=== PATIENT | male | born 1970 | race Caucasian/White ===

== ENCOUNTER 2018-11-10 19:20 | Emergency (ER) | payer MEDICAID, OTHER ==
[~2018-11-10] VITALS: Ht 170.2 cm; Wt 81.6 kg
--- NOTE | 2018-11-10 19:55 | NUR ---
PT LASHA C/O +ELLE BASILIO, WAS D/C FROM [facility] TODAY, WAS NOT READY. REQUEST TO GO TO [facility]. PT ON MONITOR IN BED 11. WILL CONTINUE TO MONITOR.
--- NOTE | 2018-11-10 20:24 | NUR ---
URINE SENT TO LAB
[2018-11-10 20:31] LABS: BASOPHILS % (AUTO) 0.6 % (0.0-2.0); EOSINOPHILS % (AUTO) 1.6 % (0.0-6.0); HEMATOCRIT 39 % (39-51); LYMPHOCYTES # (AUTO) 1.6 /CMM (0.8-4.8); LYMPHOCYTES % (AUTO) 33.4 % (20.0-44.0); MEAN CORPUSCULAR HGB CONC 34 g/dl (31.0-36.0); MEAN CORPUSCULAR VOLUME 91 fL (80-96); MONOCYTES # (AUTO) 0.7 /CMM (0.1-1.30); MONOCYTES % (AUTO) 14.4 % (2.0-12.0); NEUTROPHILS # (AUTO) 2.4 /CMM (1.8-8.9); PLATELET COUNT (AUTO) 235 /CMM (150-450); RED BLOOD CELL COUNT(AUTO) 4.26 MIL/uL (4.5-6.0); WHITE BLOOD COUNT (AUTO) 4.8 K/uL (4.3-11.0)
[2018-11-10 20:33] LABS: APPEARANCE,URINE Clear (CLEAR); BILIRUBIN,URINE Negative (NEGATIVE); BLOOD, URINE Negative Ery/uL (NEGATIVE); COLOR,URINE Yellow (YELLOW); KETONES,URINE Negative (NEGATIVE); LEUKOCYTE ESTERASE ,URINE Negative (NEGATIVE); NITRITE, URINE Negative (NEGATIVE); PROTEIN,URINE Negative (NEGATIVE); UGLUCOSE >=1000 mg/dL (NEGATIVE); UROBILINOGEN,URINE 0.2 EU/dL (0.2)
[2018-11-10 20:39] LABS: BACTERIA,URINE None seen /HPF (None Seen); RBC,URINE 0-2 /HPF (0-2); SQUAMOUS EPITHELIAL CELL,UR Few /HPF (None Seen); WBC,URINE 0-2 /HPF (0-3)
[2018-11-10 20:40] LABS: CALCIUM, SERUM 8.6 mg/dL (8.5-10.1); CARBON DIOXIDE 24 mmol/L (21-32); CHLORIDE 98 mmol/L (98-107); GLUCOSE 297 mg/dL (74-106); POTASSIUM 3.9 mmol/L (3.5-5.1); SODIUM SERUM 131 mmol/L (136-145); UREA NITROGEN, BLOOD 17 mg/dL (7-18)
[2018-11-10 20:48] LABS: ALANINE AMINOTRANSFERASE 33 U/L (12-78); ALBUMIN 3.6 g/dL (3.4-5.0); ALCOHOL, BLOOD 8 mg/dL (0-0); ALKALINE PHOSPHATASE 105 U/L (46-116); ASPARTATE AMINOTRANSFERASE 18 U/L (15-37); BILIRUBIN,DIRECT 0.1 mg/dL (0.0-0.2); BILIRUBIN,TOTAL 0.3 mg/dL (0.2-1.0); SALICYLATE 2.8 mg/dL (2.8-20.0); TOTAL PROTEIN, SERUM 7.1 g/dL (6.4-8.2)
[2018-11-10 20:49] LABS: ACETAMINOPHEN < 2 ug/ml (10-30)
[2018-11-10] MEDS ORDERED: INSULIN REGULAR, HUMAN 100 UNIT/ML 10 ML VIAL SQ ONE (21:30)
[2018-11-10] MEDS ORDERED: INSULIN REGULAR, HUMAN 100 UNIT/ML 10 ML VIAL ONE (22:14)
--- NOTE | 2018-11-10 23:28 | NUR ---
HANSEL BANDA AT BEDSIDE FOR EVAL
--- NOTE | 2018-11-11 01:26 | NUR ---
LILIANE, FROM [facility], REQUESTING PT INFO TO BE FAXED
--- NOTE | 2018-11-11 03:28 | NUR ---
PT ACCEPTED TO [facility]. ACCEPTED BY DR VELIZ. # FOR REPORT [phone]
--- NOTE | 2018-11-11 03:33 | NUR ---
CALLED [facility] FOR S TRANSPORT TO [facility]. ETA: [phone] RUN #: [id number]
--- NOTE | 2018-11-11 04:32 | NUR ---
REPORT GIVEN TO KAYLEEN SHINE AT [facility]
[2018-11-11 04:36] VITALS: BP 97/73
== END 2018-11-11 06:05 | disposition home or self-care (01) ==
LOC: ER 19:23
DX: F31.9 Bipolar disorder, unspecified (principal); I10 Essential (primary) hypertension; E11.9 Type 2 diabetes mellitus without complications; F20.9 Schizophrenia, unspecified
CPT/HCPCS: 36415; 80048; 80076; 80305; 80307; 80329; 81001; 82962 ×2; 85025; 96372; 99284; A4606; G0480; J1815; 81000-TC

== ENCOUNTER 2019-02-01 19:30 | Emergency (ER) | payer OTHER ==
[~2019-02-01] VITALS: Ht 170.2 cm; Wt 81.6 kg
--- NOTE | 2019-02-01 20:09 | NUR ---
PT PRESENTED TO THE ER WITH A C/O SI WITH A PLAN TO RUN INTO TRAFFIC. PT GAVE A URINE SAMPLE UPON ARRIVAL TO ER. PT AMBULATED TO ER18/1 WITH A STEADY GAIT. PT IS AWAITING EVAL BY . PT REC'D A SANDWICH AND JUICE X2.
[2019-02-01 20:22] LABS: APPEARANCE,URINE Clear (CLEAR); BILIRUBIN,URINE Negative (NEGATIVE); BLOOD, URINE Negative Ery/uL (NEGATIVE); COLOR,URINE Yellow (YELLOW); KETONES,URINE Negative (NEGATIVE); LEUKOCYTE ESTERASE ,URINE Negative (NEGATIVE); NITRITE, URINE Negative (NEGATIVE); PROTEIN,URINE Negative (NEGATIVE); UGLUCOSE 500 MG/DL mg/dL (NEGATIVE); UROBILINOGEN,URINE 0.2 EU/dL (0.2)
[2019-02-01 20:34] LABS: BASOPHILS % (AUTO) 0.3 % (0.0-2.0); EOSINOPHILS % (AUTO) 0.7 % (0.0-6.0); HEMATOCRIT 36 % (39-51); HEMOGLOBIN 12.2 g/dL (13.5-17.5); LYMPHOCYTES # (AUTO) 1.6 /CMM (0.8-4.8); LYMPHOCYTES % (AUTO) 25.4 % (20.0-44.0); MEAN CORPUSCULAR HGB CONC 34 g/dl (31.0-36.0); MEAN CORPUSCULAR VOLUME 92 fL (80-96); MONOCYTES # (AUTO) 0.5 /CMM (0.1-1.30); MONOCYTES % (AUTO) 7.5 % (2.0-12.0); NEUTROPHILS # (AUTO) 4.1 /CMM (1.8-8.9); NEUTROPHILS % (AUTO) 66.1 % (43.0-81.0); PLATELET COUNT (AUTO) 192 /CMM (150-450); RED BLOOD CELL COUNT(AUTO) 3.92 MIL/uL (4.5-6.0); WHITE BLOOD COUNT (AUTO) 6.2 K/uL (4.3-11.0)
[2019-02-01 20:55] LABS: ALBUMIN 3.2 g/dL (3.4-5.0); BILIRUBIN,DIRECT 0.1 mg/dL (0.0-0.2); BILIRUBIN,TOTAL 0.4 mg/dL (0.2-1.0); CALCIUM, SERUM 8.8 mg/dL (8.5-10.1); CREATININE 0.8 mg/dL (0.6-1.3); POTASSIUM 4.1 mmol/L (3.5-5.1); TOTAL PROTEIN, SERUM 6.7 g/dL (6.4-8.2)
--- NOTE | 2019-02-01 21:12 | NUR ---
PT WAS MOVED TO ER 10. PT AMBULATED WITH A STEADY GAIT.
[2019-02-01] MEDS ORDERED: INSULIN REGULAR, HUMAN 100 UNIT/ML 10 ML VIAL ONE (21:20)
--- NOTE | 2019-02-01 21:26 | NUR ---
PT REC'D MEDICATION ORDERED. PT APPEARS TO BE RESTING COMFORTABLY WITH NO S/S OF PAIN OR DISTRESS.
[2019-02-01] MEDS ORDERED: INSULIN REGULAR, HUMAN 100 UNIT/ML 10 ML VIAL SQ ONE (21:30)
[2019-02-01] MEDS ORDERED: IV NS 0.9% 1,000 ML BAG IV ONE (21:30)
--- NOTE | 2019-02-01 22:56 | NUR ---
PT APPEARS TO BE RESTING COMFORTABLY WITH NO S/S OF PAIN OR DISTRESS. WILL CONTINUE TO MONITOR THE PT.
--- NOTE | 2019-02-01 23:15 | NUR ---
PT WAS STANDING AT THE BEDSIDE. PT STATED THAT HE NEEDED TO USE THE BATHROOM. PT WAS DISCONNECTED FROM THE MONITOR AND CONTINUOUS PULSE OX.
--- NOTE | 2019-02-01 23:30 | NUR ---
PT RETURNED FROM THE BATHROOM AND WAS RECONNECTED TO THE MONITOR AND COTNINUOUS PULSE OX.
--- NOTE | 2019-02-02 00:28 | NUR ---
CALLED MELISSA GILL LCSW RE: EVALUATING THE PT. ART TO COME IN.
--- NOTE | 2019-02-02 00:35 | NUR ---
PT REC'D INSULIN ORDERED.
[2019-02-02] MEDS ORDERED: INSULIN REGULAR, HUMAN 100 UNIT/ML 10 ML VIAL SQ ONE ×4 (01:00→11:00)
--- NOTE | 2019-02-02 01:05 | NUR ---
MELISSA GILL LCSW IS AT THE BEDSIDE SPEAKING TO THE PT.
[2019-02-02] MEDS ORDERED: INSULIN GLARGINE, 100 UNIT/ML CARTRIDGE SQ SCH (01:30)
--- NOTE | 2019-02-02 01:30 | NUR ---
PT'S BLOOD SUGAR NEEDS TO BE BELOW 200 FOR TRANSFER TO PSYCHE FACILITY.
[2019-02-02] MEDS ORDERED: GLYBERIDE PO (01:49)
[2019-02-02] MEDS ORDERED: INSU100V7 SQ (01:49)
[2019-02-02] MEDS ORDERED: METF-442 PO (01:49)
[2019-02-02] MEDS ORDERED: INSU100V28 SQ (01:49)
--- NOTE | 2019-02-02 03:03 | NUR ---
REPORT GIVEN TO KAYLEEN KHAN AND K[facility]LE[facility] ALEXANDER FOR [facility].
[2019-02-02] MEDS ORDERED: IV NS 0.9% 1,000 ML BAG IV ONE (04:00)
--- NOTE | 2019-02-02 04:30 | NUR ---
FOOD AND DRINKS PROVIDED.
--- NOTE | 2019-02-02 06:55 | NUR ---
CALLED [facility], AWAITING BED AVAILABILITY IN [facility].
--- NOTE | 2019-02-02 07:21 | NUR ---
REPORT GIVEN TO KAYLEEN TAO FOR [facility].
--- NOTE | 2019-02-02 08:12 | NUR ---
FAXED LATEST BLOOD GLUCOSE TEST 182MG/DL TO [id number] [facility]
[2019-02-02] MEDS ORDERED: INSULIN REGULAR, HUMAN 100 UNIT/ML 10 ML VIAL ONE (09:48)
[2019-02-02 10:38] VITALS: BP 142/90
--- NOTE | 2019-02-02 11:00 | NUR ---
REPORT GIVEN TO VALERIE BEYER OF [facility]
--- NOTE | 2019-02-02 11:23 | NUR ---
IV removed. Catheter intact and site benign. Pressure and 4x4 applied to site. No bleeding noted. Patient picked up by [facility] in stable condition, ging to Sushma Maxwell. Written and verbal after care instructions given. Patient verbalizes understanding of instruction.
== END 2019-02-02 11:30 ==
LOC: ER 19:33
DX: R45.851 Suicidal ideations (principal); E11.65 Type 2 diabetes mellitus with hyperglycemia; I10 Essential (primary) hypertension; F17.200 Nicotine dependence, unspecified, uncomplicated; Z79.4 Long term (current) use of insulin; Z79.84 Long term (current) use of oral hypoglycemic drugs
CPT/HCPCS: 36415; 80048; 80076; 80305; 80307; 80329; 81001; 82962 ×10; 85025; 96360; 96361; 96372 ×2; 99285; G0480; J1815 ×2; J7030 ×2; 81000-TC

== ENCOUNTER 2019-08-12 21:18 | Emergency (ER) | payer OTHER ==
[~2019-08-12] VITALS: Ht 170.2 cm; Wt 77.1 kg
[~2019-08-12 21:18] MED LIST: GLYBERIDE PO; INSU100V28 SQ; INSU100V7 SQ; METF-442 PO
--- NOTE | 2019-08-12 21:21 | NUR ---
PT C/O SI WITH PLAN TO RUN INTO TRAFFIC, HEARING VOICES TELLING ME TO RUN INTO TRAFFIC. ADMITS TO E[facility]H TODAY. PT AOX4. COOPERATIVE. NAD NOTED. RESP EVEN AND UNLABORED. PT PROVIDED URINE. PT IN HOSPITAL GOWN WITH BELONGINGS IN LABELED BAGS AWAY FROM PATIENT STORED IN APPRORIATE AREA. PT ON MONITOR IN BED 10. WILL CONTINUE TO MONITOR.
--- NOTE | 2019-08-12 21:22 | NUR ---
URINE SAMPLE GIVEN TO PHLEB
[2019-08-12 21:42] LABS: APPEARANCE,URINE Clear (CLEAR); BILIRUBIN,URINE Negative (NEGATIVE); BLOOD, URINE Negative Ery/uL (NEGATIVE); COLOR,URINE Yellow (YELLOW); KETONES,URINE Trace (NEGATIVE); LEUKOCYTE ESTERASE ,URINE Negative (NEGATIVE); NITRITE, URINE Negative (NEGATIVE); PROTEIN,URINE Negative (NEGATIVE); UGLUCOSE Negative (NEGATIVE); UROBILINOGEN,URINE 0.2 EU/dL (0.2)
--- NOTE | 2019-08-12 21:42 | NUR ---
PHLEB AT BEDSIDE FOR BLOOD DRAW
[2019-08-12 21:50] LABS: BASOPHILS % (AUTO) 0.7 % (0.0-2.0); EOSINOPHILS % (AUTO) 2.3 % (0.0-6.0); HEMATOCRIT 43 % (39-51); HEMOGLOBIN 14.4 g/dL (13.5-17.5); LYMPHOCYTES # (AUTO) 1.9 /CMM (0.8-4.8); LYMPHOCYTES % (AUTO) 36.7 % (20.0-44.0); MEAN CORPUSCULAR HGB CONC 34 g/dl (31.0-36.0); MEAN CORPUSCULAR VOLUME 93 fL (80-96); MONOCYTES # (AUTO) 0.4 /CMM (0.1-1.30); NEUTROPHILS # (AUTO) 2.8 /CMM (1.8-8.9); NEUTROPHILS % (AUTO) 53.3 % (43.0-81.0); PLATELET COUNT (AUTO) 260 /CMM (150-450); RED BLOOD CELL COUNT(AUTO) 4.58 MIL/uL (4.5-6.0); WHITE BLOOD COUNT (AUTO) 5.2 K/uL (4.3-11.0)
[2019-08-12 21:51] LABS: BACTERIA,URINE Few /HPF (None Seen); RBC,URINE 0-2 /HPF (0-2); SQUAMOUS EPITHELIAL CELL,UR Rare /HPF (None Seen); WBC,URINE 0-2 /HPF (0-3)
[2019-08-12 22:00] LABS: CALCIUM, SERUM 8.9 mg/dL (8.5-10.1); CARBON DIOXIDE 27 mmol/L (21-32); CHLORIDE 103 mmol/L (98-107); CREATININE 0.7 mg/dL (0.6-1.3); GLUCOSE 169 mg/dL (74-106); POTASSIUM 3.8 mmol/L (3.5-5.1); SODIUM SERUM 142 mmol/L (136-145); UREA NITROGEN, BLOOD 10 mg/dL (7-18)
[2019-08-12 22:05] LABS: ALANINE AMINOTRANSFERASE 17 U/L (12-78); ALCOHOL, BLOOD 213 mg/dL (0-0); ALKALINE PHOSPHATASE 85 U/L (46-116); ASPARTATE AMINOTRANSFERASE 17 U/L (15-37); BILIRUBIN,DIRECT 0.1 mg/dL (0.0-0.2); BILIRUBIN,TOTAL 0.3 mg/dL (0.2-1.0); SALICYLATE 4.3 mg/dL (2.8-20.0); TOTAL PROTEIN, SERUM 7.3 g/dL (6.4-8.2)
[2019-08-12 22:06] LABS: ACETAMINOPHEN < 2 ug/ml (10-30)
--- NOTE | 2019-08-13 01:41 | NUR ---
PT GIVEN FOOD. PT RESTING COMFORTABLY IN BED. VSS. WILL CONTINUE TO MONITOR.
--- NOTE | 2019-08-13 07:47 | NUR ---
CALLED FOR FOOD TRAY
--- NOTE | 2019-08-13 08:14 | NUR ---
SPOKE TO THALIA OF [facility] INTAKE DEPT ([phone]). NUMBER FOR REPORT: [phone] / [phone] NURSING SUP: TAMEKA CLAY MD: DR VELIZ CARPENTER MINE: DR REYES
--- NOTE | 2019-08-13 09:33 | NUR ---
REPORT GIVEN TO [facility]. PATIENT GOING TO ROOM 104B
--- NOTE | 2019-08-13 11:09 | NUR ---
CALL THE [facility] [phone] [phone] RESERVATION IS [id number] DREW APA WILL HORIZONTAL BORING MILL SET UP OPERATOR
[2019-08-13] MEDS ORDERED: hydrALAZINE HCL 10 MG TABLET PO ONE (11:30)
--- NOTE | 2019-08-13 11:43 | NUR ---
ETA IS 60 MINS... PER DREW
[2019-08-13] MEDS ORDERED: CLONIDINE HCL 0.1 MG TABLET ONE (12:29)
--- NOTE | 2019-08-13 12:39 | NUR ---
Patient discharged to [facility] in stable condition. Patient will be brought to [facility] voluntarily. Written and verbal after care instructions given. Patient verbalizes understanding of instruction. Name band removed, all belongings returned to patient.
[2019-08-13 12:41] VITALS: BP 178/107
[2019-08-13] MEDS ORDERED: CLONIDINE HCL 0.1 MG TABLET PO ONE (13:00)
== END 2019-08-13 12:41 ==
LOC: ER 21:18
DX: R45.851 Suicidal ideations (principal); F10.129 Alcohol abuse with intoxication, unspecified; E11.65 Type 2 diabetes mellitus with hyperglycemia; F25.9 Schizoaffective disorder, unspecified; F17.200 Nicotine dependence, unspecified, uncomplicated; I10 Essential (primary) hypertension; Z79.4 Long term (current) use of insulin; Z79.84 Long term (current) use of oral hypoglycemic drugs; Y90.7 Blood alcohol level of 200-239 mg/100 ml
CPT/HCPCS: 36415 ×2; 80048; 80076; 80305; 80307 ×3; 80329; 81001; 85025; 99285; 99406; G0480; 81000-TC

== ENCOUNTER 2019-11-13 23:59 | Emergency (ER) | payer OTHER ==
[~2019-11-13] VITALS: Ht 170.2 cm; Wt 77.1 kg
--- NOTE | 2019-11-14 00:22 | NUR ---
PT AAOX4. AMBULATORY WITH STEADY GAIT. BIBS FOR C/O HEARING VOICES TELLING HIM TO HURT HIMSELF BY RUNNING INTO TRAFFIC. -HI. URINE SAMPLE OBTAINED AND SENT TO LAB. PT PLACED IN ROOM 14. PLACED IN GOWN, MONITOR, AND PULSE OX. VSS. BELONINGS PLACED IN LOCKER. WILL CONTINUE TO MONITOR. SITTER AT BEDSIDE.
--- NOTE | 2019-11-14 00:34 | NUR ---
SECURITY CALLED FOR WANDING
[2019-11-14 00:37] LABS: APPEARANCE,URINE Clear (CLEAR); BILIRUBIN,URINE Negative (NEGATIVE); BLOOD, URINE Negative Ery/uL (NEGATIVE); COLOR,URINE Yellow (YELLOW); KETONES,URINE Negative (NEGATIVE); LEUKOCYTE ESTERASE ,URINE Negative (NEGATIVE); NITRITE, URINE Negative (NEGATIVE); PROTEIN,URINE Negative (NEGATIVE); UGLUCOSE Negative (NEGATIVE); UROBILINOGEN,URINE 0.2 EU/dL (0.2)
[2019-11-14 00:41] LABS: BASOPHILS % (AUTO) 0.5 % (0.0-2.0); EOSINOPHILS % (AUTO) 1.7 % (0.0-6.0); HEMATOCRIT 44 % (39-51); HEMOGLOBIN 14.8 g/dL (13.5-17.5); LYMPHOCYTES # (AUTO) 1.6 /CMM (0.8-4.8); MEAN CORPUSCULAR HGB CONC 34 g/dl (31.0-36.0); MEAN CORPUSCULAR VOLUME 94 fL (80-96); MONOCYTES # (AUTO) 0.6 /CMM (0.1-1.30); MONOCYTES % (AUTO) 8.9 % (2.0-12.0); NEUTROPHILS # (AUTO) 4.3 /CMM (1.8-8.9); NEUTROPHILS % (AUTO) 64.9 % (43.0-81.0); PLATELET COUNT (AUTO) 236 /CMM (150-450); RED BLOOD CELL COUNT(AUTO) 4.65 MIL/uL (4.5-6.0); WHITE BLOOD COUNT (AUTO) 6.6 K/uL (4.3-11.0)
[2019-11-14 00:59] LABS: CALCIUM, SERUM 9.2 mg/dL (8.5-10.1); POTASSIUM 4.1 mmol/L (3.5-5.1)
[2019-11-14 01:05] LABS: ALBUMIN 4.3 g/dL (3.4-5.0); BILIRUBIN,DIRECT 0.1 mg/dL (0.0-0.2); BILIRUBIN,TOTAL 0.3 mg/dL (0.2-1.0); SALICYLATE 4.3 mg/dL (2.8-20.0); TOTAL PROTEIN, SERUM 8.1 g/dL (6.4-8.2)
--- NOTE | 2019-11-14 01:07 | NUR ---
Patient is resting comfortably in bed. Easily aroused. VSS.
--- NOTE | 2019-11-14 03:16 | NUR ---
temp: 98.5
--- NOTE | 2019-11-14 03:22 | NUR ---
CLINICALS FAXED TO [facility] FOR VOLUNTARY ADMISSION.
--- NOTE | 2019-11-14 04:27 | NUR ---
Easily aroused. VSS.
--- NOTE | 2019-11-14 04:29 | NUR ---
RECEIVED CALL FROM [facility]. PT ACCEPTED. DR. VERA UNIT 2
[2019-11-14 04:35] VITALS: BP 126/83
--- NOTE | 2019-11-14 04:39 | NUR ---
REQUESTED CALL THE [facility]. WAITING FOR CALL BACK ON ETA. #[phone]
--- NOTE | 2019-11-14 04:46 | NUR ---
RECEIVED CALL FROM CALL THE [facility]. ETA [phone] [facility]
--- NOTE | 2019-11-14 04:59 | NUR ---
REPORT CALLED TO [facility] STAFF HILARIO. AWAITING TRANSPORT.
--- NOTE | 2019-11-14 05:36 | NUR ---
TRANSPORT AT BEDSIDE REPORT GIVEN TO EMT
== END 2019-11-14 05:45 ==
LOC: ER 11-14 00:03
DX: F10.99 Alcohol use, unspecified with unspecified alcohol-induced disorder (principal); F29 Unspecified psychosis not due to a substance or known physiological condition; F20.9 Schizophrenia, unspecified; F31.9 Bipolar disorder, unspecified; F19.10 Other psychoactive substance abuse, uncomplicated; I10 Essential (primary) hypertension; E11.9 Type 2 diabetes mellitus without complications; Y90.0 Blood alcohol level of less than 20 mg/100 ml; Z79.4 Long term (current) use of insulin; Z79.899 Other long term (current) drug therapy
CPT/HCPCS: 36415; 80048; 80076; 80305; 80307; 80329; 81001; 85025; 99285; G0480; 81000-TC